=== PATIENT | male | born 1985 | race African-American/Black ===

== ENCOUNTER 2016-11-02 22:00 | Inpatient (IN) | payer OTHER ==
--- NOTE | ~2016-11-02 | PA ---
Unit #: [id number] #: [id number] Patient: LUIS DANIEL GONZALEZ [id number] [facility] [address] [place] [address] [id number] MR#: [id number] NAME: LUIS DANIEL GONZALEZ. ROOM: P210 Age: 31 Sex: M Admission Date: 11/03/2016 : 1985 Date of Assessment: 11/03/2016 Attending Physician: Deejay Clement M.D. Admitting Physician: Deejay Clement M.D. Primary Care Physician: Primary Care Physician No PSYCHIATRIC ASSESSMENT DATE OF SERVICE 11/03/2016. INFORMANTS The patient, reliable and OLOP, reliable. CHIEF COMPLAINT Heroin and opioid abuse. HISTORY OF PRESENT ILLNESS Luis Daniel is a 31-year-old man, who presented that he is afraid he will "do harm to himself with drug use," and he is homeless and unemployed. He was unable to contract for safety and was admitted with no specific suicidal ideation, intent, or plan. PAST PSYCHIATRIC HISTORY The patient has been treated in mental hospital in [place] in the past and in [facility] programs. He does not currently take psychiatric medications. FAMILY PSYCHIATRIC HISTORY Significant family history of alcohol and heroin abuse on both sides of his family. SOCIAL HISTORY The patient denied a history of childhood abuse or neglect. He is a single heterosexual man, who has previous charges of drug and domestic violence. He has a GED, but last worked about a year ago. He relocated from [place], [place], about 2 months ago to [place]. PAST MEDICAL HISTORY The patient suffers from asthma. MEDICATIONS None currently. ALLERGIES No known medication allergies. SUBSTANCE USE HISTORY As noted above. MENTAL STATUS EXAMINATION Unit #: [id number] #: [id number] Patient: LUIS DANIEL GONZALEZ presented as a mildly disheveled man, who appeared his stated age. He was cooperative with the examination. His speech was spontaneous and easily understood. Musculoskeletal examination was calm. His mood was irritable with a congruent affect. He was alert and fully oriented. His memory and concentration were fair , and his thought processes were goal directed with no active psychosis. He now denied any active suicidal ideation, intent, or plan. Insight and judgment, fair. Fund of knowledge and abstraction, fair. ASSETS AND LIABILITIES The patient is youthful and presents voluntarily for treatment. Liabilities include difficulty maintaining sobriety and lack of stability in housing and income. ADMITTING DIAGNOSES AXIS I: Opioid dependence with withdrawal, uncomplicated, F11.23 and substance-induced mood disorder. AXIS II: No diagnosis. AXIS III: History of asthma. AXIS IV: AXIS V: PSYCHIATRIC PLAN Niyah was admitted and placed on the opioid detox protocol and suicide precautions. Baseline laboratory studies and physical examination will be ordered and reviewed. He will enroll in dual diagnosis groups and activities. TREATMENT GOALS Resolution of intoxication, improvement in insight, improvement in mood, improvement in coping skills. DISCHARGE PLANNING Follow up with [facility]. ESTIMATED LENGTH OF STAY 5 days. Dictated by... Deejay Clement M.D. YADY/esau TD: 11/06/2016 11:58 JOB #: [id number] Unit #: [id number] #: [id number] Patient: LUIS DANIEL GONZALEZ PSYCHIATRIC ASSESSMENT Page 1 of 1 X Deejay Clement MD X PSYCHIATRIC ASSESSMENT
--- NOTE | ~2016-11-02 | DS ---
Unit #: [id number] #: [id number] Patient: LUIS DANIEL GONZALEZ [id number] [facility] [address] [place] [address] [id number] I MR#: [id number] NAME: LUIS DANIEL GONZALEZ. ROOM: P210 Age: 31 Sex: M Admission Date: 11/03/2016 : 1985 Discharge Date: 11/04/2016 Attending Physician: Deejay Clement M.D. Primary Care Physician: Primary Care Physician No DISCHARGE SUMMARY REASON FOR ADMISSION Luis Daniel is a 31-year-old man who came in presenting for difficulty with heroin detox. He had vague suicidal ideation but no specific plan and was admitted for stabilization. DIAGNOSTIC STUDIES Laboratory was significant for elevated liver functions with AST 163 and ALT 308. HOSPITAL COURSE The patient was admitted and placed on the opiate detox protocol. He participated briefly in psychotherapy groups and activities and his interactions with his social media analyst suggested that he was interested in primarily community-based services with no referral for a long-term care facility. After completing a brief period of inpatient detox with no significant adverse events, he was able to discharge in good condition to community resources. DISCHARGE DIAGNOSES [place] I Opiate dependence, withdraw uncomplicated. [place] II No diagnosis. [place] III History of asthma. [place] IV [place] V INSTRUCTIONS TO PATIENT Follow up with [facility] programming for chemical dependence. DISCHARGE MEDICATIONS None. CONDITION AT DISCHARGE Improved. PROGNOSIS Good. DIET AND ACTIVITY Ad farrah. Unit #: [id number] #: [id number] Patient: LUIS DANIEL GONZALEZ Dictated by... Karla Hernandez/kameron TD: 11/06/2016 11:08 JOB #: [id number] DISCHARGE SUMMARY Page 1 of 1 X Deejay Clement MD X DISCHARGE SUMMARY
--- NOTE | ~2016-11-02 | HP ---
Unit #: [id number] #: [id number] Patient: LUIS DANIEL GONZALEZ [id number] [place] [address] [id number] I MR#: [id number] NAME: LUIS DANIEL GONZALEZ. ROOM: P210 Age: 31 Sex: M Admission Date: 11/03/2016 : 1985 Attending Physician: Deejay Clement M.D. Admitting Physician: Deejay Clement M.D. Primary Care Physician: Primary Care Physician No HISTORY AND PHYSICAL HISTORY OF PRESENT ILLNESS Luis Daniel is a 31 year old admitted to [address] [place] [address] because of his drug use. He snorts cocaine and shoots heroin. PAST MEDICAL HISTORY 1. Long history of illicit substance abuse to include IV drugs. 2. Asthma. PAST SURGICAL HISTORY Nothing reported. ALLERGIES No known drug allergies. SOCIAL HISTORY Smokes one pack per day. Denies alcohol. Admits to a history of illicit substance abuse to include cocaine and IV heroin. FAMILY HISTORY Medically noncontributory. REVIEW OF SYSTEMS CONSTITUTIONAL: No fever or chills. HEENT: Denies any sore throat, ear pain or runny nose. CARDIOVASCULAR: Denies chest pain, irregular heart rhythm or palpitations. CHEST: Denies shortness of breath or cough. No hemoptysis. GASTROINTESTINAL: Denies nausea, vomiting, diarrhea or chronic constipation. ENDOCRINE: Denies history of increased thirst or urination. No recent significant weight loss or gain. GENITOURINARY: Denies dysuria, frequency, or hematuria. SKIN: Denies any rashes. HEMATOLOGIC: Denies history of increased bleeding or bruising. MUSCULOSKELETAL: Denies any hot, swollen joints. No generalized muscle pain. NEUROLOGIC: Denies problems with vision or speech. No frequent, severe headaches. No numbness, tingling or weakness in any extremities. Denies loss of bladder or bowel control. CURRENT MEDICATIONS 1. Detox protocol 2. Proventil inhaler p.r.n. Unit #: [id number] #: [id number] Patient: LUIS DANIEL GONZALEZ PHYSICAL EXAMINATION GENERAL: Alert, well-nourished, in no apparent distress. VITAL SIGNS: Blood pressure 132/82, heart rate 80, respirations 16, temperature 98.6. WEIGHT: 155 pounds. HEIGHT: 5'8". SKIN: Warm and dry without rash or lesion. HEENT: Normocephalic. TMs not viewed. Oral and nasal passages clear. Conjunctivae clear. Pupils equal, round and reactive to light and accommodation. Extraocular movements intact. NECK: Supple without lymphadenopathy or thyromegaly. HEART: Regular rate and rhythm without murmur. LUNGS: Clear. ABDOMEN: Soft, nontender. : Not done. EXTREMITIES: No evidence of cyanosis, clubbing or edema. Moves all extremities without focal deficit. NEUROLOGICAL: Grossly within normal limits. Cranial Nerves: II: Visual brian are intact. III, IV AND : Extraocular movements are intact. Pupils are equal, round and reactive to light. V: Facial sensation is grossly normal. VII: Facial movements and expression are normal. VIII: Auditory acuity grossly intact. IX, X: Uvula is midline. Phonation is normal. XI: Patient shrugs shoulders and turns head normally. XII: Tongue protrudes in the midline. Sensory and Motor Function: Sensory and motor sensation is grossly normal. Motor: moves all extremities well. Coordination: Gait is normal. Deep Tendon Reflexes: Intact. IMPRESSION Psychiatric admission. RECOMMENDATIONS PSYCHIATRIC: Per psychiatrist. MEDICAL: I see no contraindications to participating in facility's activities. MEDICAL PROGNOSIS Good. MEDICAL CONDITION Stable. Dictated by... Heidi PeralesAGermaine-Shakira. for Karla Perdomo/niall TD: 11/04/2016 01:43 JOB #: [id number] Unit #: [id number] #: [id number] Patient: LUIS DANIEL GONZALEZ A HISTORY AND PHYSICAL Page 1 of 1 X Mona Burgos X HISTORY AND PHYSICAL
[2016-11-04 13:28] LABS: BASOPHIL# 0.1 X10e3 (0-0.3); EOSINOPHIL# 0.2 X10e3 (0-0.7); EOSINOPHIL% 2.7 % (0.0-7.0); HEMATOCRIT 43.6 % (38.0-50.0); HEMOGLOBIN 14.1 gm/dL (13.0-16.0); LYMPHOCYTE# 2.1 X10e3 (1.0-3.5); LYMPHOCYTE% 34.2 % (17.0-45.0); MEAN CELL VOLUME 90.6 FL (83-96); MEAN CORPUSCULAR HEMOGLOBIN 29.2 PG (28-34); MEAN CORPUSCULAR HGB CONC 32.3 g/dL (30-36); MEAN PLATELET VOLUME 7.9 FL (6.5-11.5); MONOCYTE# 0.4 X10e3 (0-1.0); MONOCYTE% 6.8 % (3.0-12.0); NEUTROPHIL# 3.3 X10e3 (1.5-7.1); NEUTROPHIL% 55.3 % (40-75); PLATELET COUNT 287 X10e3 (140-420); RED BLOOD COUNT 4.81 X10e (3.90-5.60); RED CELL DISTRIBUTION WIDTH 17.8 % (11.0-15.5); WHITE BLOOD COUNT 6.1 X10e3 (4.0-10.5)
[2016-11-04 13:42] LABS: URINE APPEARANCE CLEAR; URINE BILIRUBIN NEG (NEG); URINE BLOOD NEG (NEG); URINE COLOR DK YELLOW; URINE GLUCOSE NEG (NEG); URINE KETONE NEG (NEG); URINE LEUKOCYTE ESTERASE TRACE (NEG); URINE NITRATE NEG (NEG); URINE PROTEIN NEG (NEG)
[2016-11-04 13:46] LABS: ALBUMIN SERUM 3.7 g/dL (3.5-5.0); BILIRUBIN,TOTAL 0.7 mg/dL (0.2-2.0); CALCIUM SERUM 9.6 mg/dL (8.4-10.2); GLOM FILT RATE Estimated 115.7 mL/min (>60); POTASSIUM 4.5 mmol/L (3.5-5.1); PROTEIN TOTAL SERUM 6.9 g/dL (6.0-8.3)
[2016-11-04 13:47] LABS: URBCS1 AUWI 0-2 /[HPF] (0-2); URINE BACTERIA AUWI NEG (NEGATIVE); URINE SQUAMOUS EPITHELIAL CELL NONE SEEN /[HPF]; UWBCS1 AUWI 0-2 (0-5)
[2016-11-04 13:49] LABS: AMPHETAMINE NEG (NEG); BARBITURATES NEG (NEG); BENZODIAZEPINES NEG (NEG); COCAINE NEG (NEG); MARIJUANA NEG (NEG); OPIATES NEG (NEG); TRICYCLIC ANTIDEPRESSANTS NEG (NEG); U METHADONE NEG (NEG)
[2016-11-04 13:54] LABS: DIFF IND NO
== END 2016-11-04 12:45 | disposition home or self-care (01) | DRG 897 ==
LOC: POF 11-03 06:58 → P2S 11-03 09:16
PROVIDERS: Psychiatry & Neurology Psychiatry
PROC: HZ2ZZZZ Detoxification Services for Substance Abuse Treatment (ICD-10-PCS; principal; 2016-11-03)
DX: F11.23 Opioid dependence with withdrawal (principal); F11.24 Opioid dependence with opioid-induced mood disorder; J45.909 Unspecified asthma, uncomplicated; Z81.1 Family history of alcohol abuse and dependence; Z81.3 Family history of other psychoactive substance abuse and dependence; F17.210 Nicotine dependence, cigarettes, uncomplicated
CPT/HCPCS: 80053; 80307; 81003; 85025; 86592

== ENCOUNTER 2016-11-11 | Inpatient (IN) | payer OTHER ==
--- NOTE | ~2016-11-11 | HP ---
Unit #: [id number] #: [id number] Patient: LUIS DANIEL GONZALEZ [id number] [place] [address] [id number] I MR#: [id number] NAME: LUIS DANIEL GONZALEZ. ROOM: P180 Age: 31 Sex: M Admission Date: 11/11/2016 : 1985 Attending Physician: Deejay Clement M.D. Admitting Physician: Deejay Clement M.D. Primary Care Physician: Primary Care Physician No HISTORY AND PHYSICAL HISTORY OF PRESENT ILLNESS Luis Daniel is a 31 year old, admitted to [facility] because of his continued drug use. He was just discharged from this facility after treatment for the same. The patient was seen and history and physical, dated 11/03/2016 was reviewed. This is current. No changes. Please see history and physical, dated 11/03/2016. Dictated by... Mona Burgos P.A.-C. for Karla Perdomo/kameron TD: 11/12/2016 05:16 JOB #: [id number] HISTORY AND PHYSICAL Page 1 of 1 X Mona Burgos HISTORY AND PHYSICAL
[2016-11-13 12:49] LABS: AMPHETAMINE NEG (NEG); BARBITURATES NEG (NEG); BENZODIAZEPINES NEG (NEG); COCAINE NEG (NEG); MARIJUANA NEG (NEG); OPIATES NEG (NEG); TRICYCLIC ANTIDEPRESSANTS NEG (NEG); U METHADONE NEG (NEG)
== END 2016-11-13 16:10 | disposition home or self-care (01) | DRG 897 ==
LOC: P1E 04:17
PROVIDERS: Psychiatry & Neurology Psychiatry
DX: F11.20 Opioid dependence, uncomplicated (principal)
CPT/HCPCS: 80307

== ENCOUNTER 2016-12-28 05:16 | Emergency (ER) | payer OTHER ==
[~2016-12-28] VITALS: Ht 172.7 cm; Wt 68.0 kg
== END 2016-12-28 07:31 | disposition home or self-care (01) ==
LOC: CED 05:16
DX: J45.909 Unspecified asthma, uncomplicated (principal); F17.200 Nicotine dependence, unspecified, uncomplicated
CPT/HCPCS: 99284

== ENCOUNTER 2016-12-28 16:48 | Emergency (ER) | payer OTHER ==
[~2016-12-28] VITALS: Ht 172.7 cm; Wt 68.0 kg
== END 2016-12-28 21:00 | disposition left against medical advice (07) ==
LOC: CED 16:48
DX: Z53.21 Procedure and treatment not carried out due to patient leaving prior to being seen by health care provider (principal)

== ENCOUNTER 2016-12-29 20:14 | Inpatient (IN) | payer OTHER ==
[~2016-12-29] VITALS: Ht 172.7 cm; Wt 68.0 kg
--- NOTE | ~2016-12-29 | PN ---
Unit #: [id number] #: [id number] Patient: LUIS DANIEL GONZALEZ [id number] [facility] [address] [place] [address] [id number] I MR#: [id number] NAME: LUIS DANIEL GONZALEZ. ROOM: P185 Age: 31 Sex: M Admission Date: 12/29/2016 : 1985 Attending Physician: Deejay Clement M.D. Admitting Physician: Deejay Clement M.D. Primary Care Physician: Primary Care Physician Sariah ROJAS NOTES DATE 01/03/2017 DISCUSSION This patient was seen and assessed on 01/03/2017. Upon today's assessment, this patient was found ambulating the dayroom. He had no complaints at this time and stated "I feel a little bit better." The patient at this time denies suicidal/homicidal ideations and verbalizes no plan or intent. He denies auditory, visual hallucinations and no overt symptoms of psychosis was noted at this time. He had no further complaints. PLAN Continue to monitor the patient q. 15 minute checks for safety and encourage participation in dual diagnosis groups and programming. Dictated by... Anastasiya Gonzalez APRN for Karla Hernandez/lulu TD: 01/06/2017 22:51 JOB #: [id number] KELBY ROJAS NOTES Page 1 of 1 X ANASTASIYA GONZALEZ PROGRESS NOTE
--- NOTE | ~2016-12-29 | PN ---
Unit #: [id number] #: [id number] Patient: LUIS DANIEL GONZALEZ [id number] [facility] [address] [place] [address] [id number] I MR#: [id number] NAME: LUIS DANIEL GONZALEZ. ROOM: P185 Age: 31 Sex: M Admission Date: 12/29/2016 : 1985 Attending Physician: Deejay Clement M.D. Admitting Physician: Deejay Clement M.D. Primary Care Physician: Primary Care Physician Sariah LAMA PROGRESS NOTES DATE 01/05/2017 DISCUSSION Luis Daniel is up and about attending groups today. He is tolerating citalopram with no adverse side effects. He is alert and fully oriented with no psychosis. He does continue to ruminate on suicidal ideation but feels that he is looking forward to placement in a long-term care facility for both mental health and substance abuse care. ASSESSMENT 1. Major depression. 2. Opiate dependence. PLAN Continue current treatment plan. Dictated by... Karla Hernandez/margarito TD: 01/10/2017 11:31 JOB #: [id number] KELBY PROGRESS NOTES Page 1 of 1 X Deejay Clement MD X PROGRESS NOTE
--- NOTE | ~2016-12-29 | PN ---
Unit #: [id number] #: [id number] Patient: LUIS DANIEL GONZALEZ [id number] [facility] [address] [place] [address] [id number] I MR#: [id number] NAME: LUIS DANIEL GONZALEZ. ROOM: P185 Age: 31 Sex: M Admission Date: 12/29/2016 : 1985 Attending Physician: Deejay Clement M.D. Admitting Physician: Deejay Clement M.D. Primary Care Physician: Primary Care Physician Sariah LAMA PROGRESS NOTES DATE 12/31/2016 DISCUSSION Luis Daniel continues to be minimally interactive. He is staying in bed much of the day and does not attend groups or activities. He makes a minimal attempt at communicating with me during our interview but does continue to report suicidal ideation. ASSESSMSENT 0piate dependence, major depression. PLAN Continue current treatment plan. Dictated by... Karla Hernandez/niall TD: 01/07/2017 03:35 JOB #: [id number] [facility] PROGRESS NOTES Page 1 of 1 X Deejay Clement MD PROGRESS NOTE
--- NOTE | ~2016-12-29 | PA ---
Unit #: [id number] #: [id number] Patient: LUIS DANIEL GONZALEZ [id number] [facility] [address] [place] [address] [id number] I MR#: [id number] NAME: LUIS DANIEL GONZALEZ. ROOM: P185 Age: 31 Sex: M Admission Date: 12/29/2016 : 1985 Date of Assessment: Attending Physician: Deejay Clement M.D. Admitting Physician: Deejay Clement M.D. Primary Care Physician: Primary Care Physician No PSYCHIATRIC ASSESSMENT INFORMANT(S) Patient, partially reliable. [facility], veronique. CHIEF COMPLAINT Suicidal ideation. HISTORY OF PRESENT ILLNESS Luis Daniel Gonzalez is a 31-year-old man, who reports that he has been doing a significant amount of drugs including stimulants lately. He reports increasing depression and suicidal ideation with plan to shoot himself. He was unable to contract for safety and was readmitted for further assessment and stabilization. PAST PSYCHIATRIC HISTORY One previous admission to this facility in November of this year. He has been treated in mental hospital in [place] in the past and has been in [facility]. He is currently not taking any psychiatric medications. FAMILY PSYCHIATRIC HISTORY Significant family history of alcohol and heroin abuse. SOCIAL HISTORY The patient denies any history of child abuse or neglect. He is a single heterosexual man with previous charges of drugs and domestic violence. He is unemployed and homeless in [place] after relocating from [place], [place]. PAST MEDICAL HISTORY Significant for asthma. MEDICATIONS None currently. ALLERGIES No known medication allergies. SUBSTANCE ABUSE HISTORY As noted above. MENTAL STATUS EXAM The patient presented as a mildly disheveled many who appeared his stated Unit #: [id number] #: [id number] Patient: LUIS DANIEL GONZALEZ age. He was sleepy and difficult to arouse for the examination. His speech was spontaneous and easily understood. Musculoskeletal examination is calm. His mood was irritable with a congruent affect. He was alert and fully oriented. Memory and concentration were fair. Thought processes were goal-directed with no evidence of psychosis. He was unwilling to contract for safety in the outpatient setting. Insight and judgment were fair. Fund of knowledge and abstraction were fair. ASSETS The patient knows local resources and is presenting voluntarily for treatment. LIABILITIES Include, homelessness, and lack of compliance with medication. ADMITTING DIAGNOSES [place] I: Opiate dependence with withdrawal, F41.23. Depressive disorder, NOS. [place] II: Antisocial traits. [place] III: Opiate withdrawal. History of asthma. [place] IV: [place] V: PSYCHIATRIC PLAN The patient was admitted and placed on suicide precautions and opiate detox protocol. His inhaler will be restarted. Physical examination and laboratory studies will be ordered and reviewed. Once he is able to participate we will consider reinitiation of an antidepressant medication though he has declined this several times in the past. TREATMENT GOALS Resolution of SI, establishment of sobriety, improvement in insight, improvement in coping skills. DISCHARGE PLANNING Follow up with [facility]. ESTIMATED LENGTH OF STAY Five days. Dictated by... Deejay Clement M.D. YADY/kameron TD: 01/02/2017 08:48 JOB #: [id number] Unit #: [id number] #: [id number] Patient: LISALUIS DANIEL Alves PSYCHIATRIC ASSESSMENT Page 1 of 1 X Deejay Clement MD X PSYCHIATRIC ASSESSMENT
--- NOTE | ~2016-12-29 | PN ---
Unit #: [id number] #: [id number] Patient: LUIS DANIEL GONZALEZ [id number] [facility] [address] [place] [address] [id number] I MR#: [id number] NAME: LUIS DANIEL GONZALEZ. ROOM: P185 Age: 31 Sex: M Admission Date: 12/29/2016 : 1985 Attending Physician: Deejay Clement M.D. Admitting Physician: Deejay Clement M.D. Primary Care Physician: Primary Care Physician Sariah LAMA PROGRESS NOTES DATE OF SERVICE: 01/02/2017 DISCUSSION Luis Daniel is a little bit better today with decreased detox symptoms. He is up and around on the unit. He continues to complain of depression. He is alert and fully oriented. His memory and concentration are fair. Thought processes are logical with no active psychosis. He continues to endorse suicidal ideation. ASSESSMENT Major depression, opioid dependence. PLAN Start Celexa 20 mg daily. Dictated by... Deejay Clement M.D. [facility]/esau TD: 01/07/2017 15:54 JOB #: [id number] [facility] PROGRESS NOTES Page 1 of 1 X Deejay Clement MD PROGRESS NOTE
--- NOTE | ~2016-12-29 | DS ---
Unit #: [id number] #: [id number] Patient: LUIS DANIEL VELAZQUEZ [id number] [facility] [address] [place] [address] [id number] MR#: [id number] NAME: LUIS DANIEL VELAZQUEZ. ROOM: P185 Age: 31 Sex: M Admission Date: 12/29/2016 : 1985 Discharge Date: 01/07/2017 Attending Physician: Deejay Clement M.D. Primary Care Physician: Primary Care Physician No DISCHARGE SUMMARY REASON FOR ADMISSION Mr. Velazquez is a 31-year-old man, who came in reporting that he had relapsed on heroin and become increasingly depressed with suicidal ideation. He was unable to contract for safety and was admitted for stabilization. DIAGNOSTIC STUDIES Laboratory data, please see hospital chart. HOSPITAL COURSE The patient was admitted and place don suicide precautions and the opiate detox protocol. He was quite tired and unresponsive to interventions for the first several days of his hospitalization, but after becoming more alert, and able to function, he continued to report suicidal ideation. Citalopram 20 mg daily was initiated together with trazodone for insomnia. He tolerated his medications well and participated in psychotherapy groups and activities with dual diagnosis focus. On the day of discharge, he had achieved placement in a long-term care facility and was able to discharge in stable condition. DISCHARGE DIAGNOSES [place] I Major depression. Opiate dependence. [place] II No diagnosis. [place] III None acute. [place] IV [place] V INSTRUCTIONS TO PATIENT Follow up with long-term care facility as arranged. DISCHARGE MEDICATIONS 1. Celexa 20 mg daily for depression 2. Trazodone 50 mg at bedtime as needed for insomnia. CONDITION AT DISCHARGE Improved. PROGNOSIS Feys-lz-cdma. DIET AND ACTIVITY Unit #: [id number] #: [id number] Patient: LUIS DANIEL VELAZQUEZ Ad farrah. Dictated by... Karla Hernandez/kameron TD: 01/09/2017 11:24 JOB #: [id number] DISCHARGE SUMMARY Page 1 of 1 X Deejay Clement MD X DISCHARGE SUMMARY
--- NOTE | ~2016-12-29 | PN ---
Unit #: [id number] #: [id number] Patient: LUIS DANIEL GONZALEZ [id number] [facility] [address] [place] [address] [id number] MR#: [id number] NAME: LUIS DANIEL GONZALEZ. ROOM: P185 Age: 31 Sex: M Admission Date: 12/29/2016 : 1985 Attending Physician: Deejay Clement M.D. Admitting Physician: Deejay Clement M.D. Primary Care Physician: Primary Care Physician Sariah LAMA PROGRESS NOTES DATE 01/04/2017 DISCUSSION Mr. Gonzalez is showing improvement today. He is participating better in groups and activities, and his mood is less depressed with a brighter range of affect. He is alert and fully oriented. His memory and concentration are fair, and his thought processes are logical with no active psychosis. ASSESSMENT 1. Major depression. 2. Opiate dependence. PLAN Continue current treatment plan. Dictated by... Karla HernandezH/bzg TD: 01/10/2017 11:10 JOB #: [id number] [facility] PROGRESS NOTES Page 1 of 1 X Deejay Clement MD PROGRESS NOTE
--- NOTE | ~2016-12-29 | HP ---
Unit #: [id number] #: [id number] Patient: LUIS DANIEL GONZALEZ [id number] [place] [address] [id number] MR#: [id number] NAME: LUIS DANIEL GONZALEZ. ROOM: P185 Age: 31 Sex: M Admission Date: 12/29/2016 : 1985 Attending Physician: Deejay Clement M.D. Admitting Physician: Deejay Clement M.D. Primary Care Physician: Primary Care Physician No HISTORY AND PHYSICAL HISTORY OF PRESENT ILLNESS Luis Daniel is a 31 year old admitted to [facility] because of his continued drug use. He has had other admissions to this facility. PAST MEDICAL HISTORY 1. Long history of illicit substance abuse to include IV drugs. 2. Asthma. PAST SURGICAL HISTORY Nothing reported. ALLERGIES No known drug allergies. SOCIAL HISTORY Smokes 1 pack per day. Denies alcohol. Admits to a history of illicit substance abuse to include cocaine and IV heroin. FAMILY HISTORY Medically noncontributory. REVIEW OF SYSTEMS CONSTITUTIONAL: No fever or chills. HEENT: Denies any sore throat, ear pain or runny nose. CARDIOVASCULAR: Denies chest pain, irregular heart rhythm or palpitations. CHEST: Denies shortness of breath or cough. No hemoptysis. GASTROINTESTINAL: Denies nausea, vomiting, diarrhea or chronic constipation. ENDOCRINE: Denies history of increased thirst or urination. No recent significant weight loss or gain. GENITOURINARY: Denies dysuria, frequency, or hematuria. SKIN: Denies any rashes. HEMATOLOGIC: Denies history of increased bleeding or bruising. MUSCULOSKELETAL: Denies any hot, swollen joints. No generalized muscle pain. NEUROLOGIC: Denies problems with vision or speech. No frequent, severe headaches. No numbness, tingling or weakness in any extremities. Denies loss of bladder or bowel control. CURRENT MEDICATIONS Detox protocol. PHYSICAL EXAMINATION Unit #: [id number] #: [id number] Patient: LUIS DANIEL GONZALEZ GENERAL: Alert, well-nourished, in no apparent distress. VITAL SIGNS: Blood pressure 116/62, heart rate 80, respirations 16, temperature 98.6. WEIGHT: 150. HEIGHT: 5 feet 8 inches. SKIN: Warm and dry without rash or lesion. HEENT: Normocephalic. TMs not viewed. Oral and nasal passages clear. Conjunctivae clear. PERRLA. EOMs intact. NECK: Supple without lymphadenopathy or thyromegaly. HEART: Regular rate and rhythm without murmur. LUNGS: Clear. ABDOMEN: Soft, nontender. : Not done. EXTREMITIES: No evidence of cyanosis, clubbing or edema. Moves all without focal deficit. NEUROLOGICAL: Grossly within normal limits. Cranial Nerves: II: Visual brian are intact. III, IV AND : Extraocular movements are intact. Pupils are equal, round and reactive to light. V: Facial sensation is grossly normal. VII: Facial movements and expression are normal. VIII: Auditory acuity grossly intact. IX, X: Uvula is midline. Phonation is normal. XI: Patient shrugs shoulders and turns head normally. XII: Tongue protrudes in the midline. Sensory and Motor Function: Sensory and motor sensation is grossly normal. Motor: moves all extremities well. Coordination: Gait is normal. Deep Tendon Reflexes: Intact. DIAGNOSTIC STUDIES ADMISSION LABS: AST/ALT 99/146. IMPRESSION 1. Psychiatric admission. 2. History of IV drug use. 3. Elevated liver enzymes on admission. RECOMMENDATIONS PSYCHIATRIC: Per psychiatrist. MEDICAL: 1. See no contraindication to participate in facility's activities. 2. Detox per protocol. 3. Would screen for hepatitis C. MEDICAL PROGNOSIS Good. MEDICAL CONDITION Stable. Dictated by... Heidi PeralesATaina. for Karla Perdomo/lulu Unit #: [id number] #: [id number] Patient: LUIS DANIEL GONZALEZ TD: 12/30/2016 18:04 JOB #: [id number] HISTORY AND PHYSICAL Page 1 of 1 X Mona Burgos X HISTORY AND PHYSICAL
--- NOTE | ~2016-12-29 | PN ---
Unit #: [id number] #: [id number] Patient: LUIS DANIEL GONZALEZ [id number] [facility] [address] [place] [address] [id number] MR#: [id number] NAME: LUIS DANIEL GONZALEZ. ROOM: P185 Age: 31 Sex: M Admission Date: 12/29/2016 : 1985 Attending Physician: Deejay Clement M.D. Admitting Physician: Deejay Clement M.D. Primary Care Physician: Primary Care Physician Sariah LAMA PROGRESS NOTES DATE 01/06/2017 DISCUSSION Luis Daniel is compliant with medications and has no adverse side effects. He is alert and fully oriented today with no psychosis. He denies suicidal ideation and is looking forward to potential placement at [facility] tomorrow. ASSESSMENT 1. Major depression. 2. Opioid dependence. PLAN Continue with current treatment plan. Anticipating discharge tomorrow. Dictated by... Karla HernandezH/bzg TD: 01/10/2017 11:55 JOB #: [id number] [facility] PROGRESS NOTES Page 1 of 1 X Deejay Clement MD X PROGRESS NOTE
--- NOTE | ~2016-12-29 | PN ---
Unit #: [id number] #: [id number] Patient: LUIS DANIEL GONZALEZ [id number] [facility] [address] [place] [address] [id number] MR#: [id number] NAME: LUIS DANIEL GONZALEZ. ROOM: P185 Age: 31 Sex: M Admission Date: 12/29/2016 : 1985 Attending Physician: Deejay Clement M.D. Admitting Physician: Deejay Clement M.D. Primary Care Physician: Primary Care Physician Sariah LAMA PROGRESS NOTES DATE 01/01/2017 DISCUSSION Luis Daniel refuses to be minimally cooperative and very difficult to interview today. He reports active withdrawal symptoms and some depression but is equivocal about suicidal ideation. He is alert and fully oriented although not getting up and not participating in groups and activities. ASSESSMENT Major depression. Opiate dependence. PLAN We will continue current treat plan and anticipate initiating an SSRI once the patient is able to give informed consent. Dictated by... Karla Hernandez/niall TD: 01/07/2017 03:47 JOB #: [id number] [facility] PROGRESS NOTES Page 1 of 1 X Deejay Clement MD PROGRESS NOTE
[2016-12-30 09:51] LABS: BASOPHIL% 0.8 % (0-2.5); EOSINOPHIL# 0.2 X10e3 (0-0.7); EOSINOPHIL% 3.8 % (0.0-7.0); HEMATOCRIT 44.5 % (38.0-50.0); HEMOGLOBIN 15.1 gm/dL (13.0-16.0); LYMPHOCYTE# 2.1 X10e3 (1.0-3.5); LYMPHOCYTE% 33.5 % (17.0-45.0); MEAN CELL VOLUME 90.6 FL (83-96); MEAN CORPUSCULAR HEMOGLOBIN 30.7 PG (28-34); MEAN CORPUSCULAR HGB CONC 33.9 g/dL (30-36); MEAN PLATELET VOLUME 7.6 FL (6.5-11.5); MONOCYTE# 0.6 X10e3 (0-1.0); MONOCYTE% 9.6 % (3.0-12.0); NEUTROPHIL# 3.3 X10e3 (1.5-7.1); NEUTROPHIL% 52.3 % (40-75); PLATELET COUNT 277 X10e3 (140-420); RED BLOOD COUNT 4.92 X10e (3.90-5.60); RED CELL DISTRIBUTION WIDTH 15.4 % (11.0-15.5); WHITE BLOOD COUNT 6.2 X10e3 (4.0-10.5)
[2016-12-30 09:57] LABS: DIFF IND NO
[2016-12-30 10:09] LABS: ALBUMIN SERUM 3.7 g/dL (3.5-5.0); BILIRUBIN,TOTAL 0.7 mg/dL (0.2-2.0); BUN/CREATININE RATIO 13.33; CALCIUM SERUM 9.2 mg/dL (8.4-10.2); CREATININE SERUM 1.2 mg/dL (0.6-1.4); GLOM FILT RATE Estimated 92.9 mL/min (>60); POTASSIUM 4.3 mmol/L (3.5-5.1); PROTEIN TOTAL SERUM 6.9 g/dL (6.0-8.3)
[2016-12-30 11:41] LABS: AMPHETAMINE POS (NEG); BARBITURATES NEG (NEG); BENZODIAZEPINES NEG (NEG); COCAINE NEG (NEG); MARIJUANA POS (NEG); OPIATES NEG (NEG); TRICYCLIC ANTIDEPRESSANTS NEG (NEG); U METHADONE NEG (NEG)
== END 2017-01-07 10:40 | DRG 897 ==
LOC: P1E 22:11
PROVIDERS: Psychiatry & Neurology Psychiatry
PROC: HZ2ZZZZ Detoxification Services for Substance Abuse Treatment (ICD-10-PCS; principal; 2016-12-29)
DX: F11.23 Opioid dependence with withdrawal (principal); F32.9 Major depressive disorder, single episode, unspecified; Z72.811 Adult antisocial behavior; J45.909 Unspecified asthma, uncomplicated; F17.200 Nicotine dependence, unspecified, uncomplicated
CPT/HCPCS: 80053; 80307; 85025